=== PATIENT | female | born 1975 | race Caucasian/White ===

== ENCOUNTER 2023-11-26 22:39 | Emergency (ER) | payer BC, OTHER ==
[2023-11-26 22:49] VITALS: BP 149/93; PULSE 116; RESP 20; TEMP 98.6; BMI 29.2
[2023-11-26 23:10] LABS: HEMATOCRIT 37.6 % (32.4-45.2); HEMOGLOBIN 12.1 G/dL (10.7-15.3); MCH 27.2 pg (25.7-33.7); MCHC 32.2 g/dl (32.0-36.0); MEAN CELL VOLUME 84.3 fl (80-96); MEAN PLT VOLUME 7.9 fl (7.5-11.1); PLATELET COUNT 323.3 10^3/uL (134-434); RBC 4.46 10^6/uL (3.60-5.2); RDW 14.2 % (11.6-15.6)
[2023-11-26 23:30] LABS: ALBUMIN 3.7 g/dl (3.4-5.0); BILIRUBIN,TOTAL 0.3 mg/dl (0.2-1); CALCIUM 9.1 mg/dl (8.5-10.1); CREATININE 0.7 mg/dl (0.6-1.3); POTASSIUM 3.9 mmol/L (3.5-5.1); TOT PROT 6.7 g/dl (6.4-8.2)
[2023-11-26] MEDS ORDERED: cefTRIAXone SODIUM 1 GM VIAL ONE (23:36)
[2023-11-26] MEDS ORDERED: AZITHROMYCIN 500 MG TABLET ONE (23:36)
[2023-11-26] MEDS: AZITHROMYCIN 250 MG TABLET PO STA (23:41)
[2023-11-26] MEDS: CEFTRIAXONE 1,000 MG in DEXTROSE 5%-WATER - 50 ML IVPB ONE (23:41)
== END 2023-11-27 01:03 | disposition home or self-care (01) ==
LOC: FER 22:39
PROC: 3E033GC Introduction of Other Therapeutic Substance into Peripheral Vein, Percutaneous Approach (ICD-10-PCS; principal; 2023-11-26)
DX: R05.9 Cough, unspecified (principal); R09.81 Nasal congestion; R06.02 Shortness of breath; J18.9 Pneumonia, unspecified organism
CPT/HCPCS: 36415; 71045-TC-FY; 71275-TC; 80053; 85027; 85379; 99285-25; Q9967